=== PATIENT | male | born 1955 | race Caucasian/White ===

== ENCOUNTER 2018-11-09 14:31 | Emergency (ER) | payer MEDICARE, OTHER ==
[2018-11-09] MEDS ORDERED: METO25TA23 PO (14:41)
[2018-11-09] MEDS ORDERED: ASPI81TA94 PO (14:41)
[2018-11-09] MEDS ORDERED: LISI-362 PO (14:41)
[2018-11-09] MEDS ORDERED: OMEP-125 PO (14:41)
--- NOTE | 2018-11-09 14:43 | ER Report ---
History and Physical Time Seen By MD: 14:43 Hx. of Stated Complaint: FELL ON SHOULDER, SENT FROM [facility] HPI/PAULINE CHIEF COMPLAINT: Possible dislocation of left clavicle HISTORY OF PRESENT ILLNESS: 63-year-old male patient presents to emergency room with complaint of possible dislocation to the left clavicle. Patient states that he was getting out of his car today and noted that was normalized. When he walked around her with Cipro twice slipped and fell landing on his left shoulder. Patient has significant swelling to the sternoclavicular joint as well as his neck. Patient states he does have pain. He rates pain currently an 8.5-10 out of 10. Patient denies any nausea, vomiting or diarrhea. He did go to [facility] acute-care clinic and was evaluated there. They did do some x-rays and felt that the clavicle was dislocated. I did attempt to reduce above unsuccessful. They referred him to the emergency room for further evaluation. REVIEW OF SYSTEMS: Respiratory: No cough, no dyspnea. Cardiovascular: No chest pain, no palpitations. Gastrointestinal: No vomiting, no abdominal pain. Musculoskeletal: As noted above Allergies: Coded Allergies: No Known Drug Allergies (Unverified , 11/09/18) Home Meds Active Scripts Oxycodone Hcl/Acetaminophen (PERCOCET 5-325 MG TABLET) 1 Each Tablet, 1 EACH PO Q4-6H PRN for PAIN, #12 TAB Prov:WELLINGTON AMOR [employer] AND MAINTENANCE TECHNICIAN 11/09/18 Reported Medications Aspirin (ASPIRIN) 81 Mg Tab.chew, 81 MG PO QDAY, TAB.CHEW 11/09/18 Metoprolol Succinate (METOPROLOL SUCCINATE) 25 Mg Tab.er.24h, 1 TAB PO QDAY, TAB 11/09/18 Omeprazole (OMEPRAZOLE) 20 Mg Capsule.dr, 1 CAP PO BID, CAP 11/09/18 Lisinopril (LISINOPRIL) 10 Mg Tablet, 10 MG PO QDAY, TAB 11/09/18 Past Medical/Surgical History Patient has a past medical history of tachycardia, reflux, right collarbone fracture, tinnitus, skin cancer. Patient has surgical history of inguinal hernia repair. Reviewed Nurses Notes: Yes Constitutional Vital Sign - Last 24 Hours 11/09/18 11/09/18 11/09/18 11/09/18 14:36 14:36 15:00 15:01 Temp 97.4 Pulse 69 68 Resp 16 B/P (MAP) 135/87 (103) 135/87 141/83 (102) Pulse Ox 92 91 O2 Delivery Room Air 11/09/18 11/09/18 11/09/18 15:30 15:31 16:01 Pulse 73 74 B/P (MAP) 140/79 (99) Pulse Ox 90 88 Physical Exam General Appearance: The patient is alert, has no immediate need for airway protection and no current signs of toxicity. Respiratory: Chest is non tender, lungs are clear to auscultation. Cardiac: regular rate and rhythm Musculoskeletal: Neck: Neck is supple and non tender. Extremities have full range of motion and are non tender. Patient has tenderness to the anterior clavicle, has swelling around there. There is no bruising noted. Skin: No rashes or lesions. DIFFERENTIAL DIAGNOSIS: After history and physical exam differential diagnosis was considered for fracture, contusion, dislocation. Medical Decision Making EKG/Imaging Imaging CT left shoulder Indication: Shoulder pain. Injury. Dislocated clavicle. Comparison: None available. Technique: Axial CT images were obtained through the left shoulder. Reformatted coronal and sagittal images were reviewed. One of the following dose optimization techniques was utilized in the performanc e of this exam: Automated exposure control; adjustment of the mA and/or kV according to the patient's size; or use of an iterative reconstruction technique. Specific details can be referenced in the facility's radiology CT exam operational policy. Findings: With respect to the left clavicle, there is a mildly comminuted, intra-articular fracture seen involving the most medial clavicle at the sternoclavicular joint. In the short axis and in the sagittal planes, minimal displacement at the fracture site. Coronal images demonstrate normal alignment at the sternoclavicular joint. This appears symmetric to the right side. There is mild stranding in the overlying soft tissues consistent with edema and ecchymosis/blood products. Correlate clinically with physical exam. The remaining portions of the clavicle are unremarkable. No additional fracture. Distally, the acromioclavicular joint is appropriately aligned with moderate underlying degenerative change/osteoarthritis. At the shoulder, there is a type II acromion with a tiny subacromial spur. The glenohumeral joint is normally aligned. No fracture of the scapula or the proximal humerus. Intact and symmetric to the right side. No glenohumeral joint effusion. Musculature about the shoulder joint is intact. No axillary adenopathy. Visualized portions of the right lung are clear. No pneumothorax is seen. There is evidence of old granulomatous disease. IMPRESSION: 1. Minimally displaced, intra-articular fracture of the proximal/medial aspect of the left clavicle. There is fracture line extension into the sternoclavicular joint. Alignment at the sternoclavicular joint appears intact. 2. Soft tissue attenuation stranding within the overlying soft tissues at the site of the clavicle fracture. Correlate for edema/ecchymosis/hematoma. 3. Degenerative changes at the acromioclavicular joint. 4. Normal appearance of the left glenohumeral joint. Report Dictated By: Sg Jain at 11/09/2018 3:26 PM Report E-Signed By: Sg Jain at 11/09/2018 3:41 PM ED Course/Re-evaluation ED Course Patient was admitted to an exam room, history and physical were obtained. Differential diagnoses were considered. On examination lungs are clear, heart is regular, patient does have swelling to the left side of the chest and neck. Is tender to palpation. Patient was rating his pain an 8-1/2 out of 10. He did receive one dose of Percocet. I discussed case with Dr. Sandoval, orthopedist. He recommended getting a CT scan to verify dislocation of the clavicle. A CT scan was done. There is no obvious dislocation, however there was a nondisplaced fracture that could go into the intra-articular space. I discussed the findings with the patient. I spoke with Dr. Sandoval did have the opportunity to take a look at the images. He felt that there would be no surgical intervention needed. He felt that this would heal up well without any difficulties. I discussed this with the patient and his . We will go ahead and discharge him home. We'll give him a prescription for Percocet. I will have him follow-up with Dr. Sandoval in 1-2 weeks to make sure that the fracture is healing properly. Patient and his verbalized understanding and agreement with plan. Decision to Disposition Date: Nov 09, 2018 Decision to Disposition Time: 16:00 Depart Departure Latest Vital Signs Vital Signs Date Time Temp Pulse Resp B/P (MAP) Pulse Ox O2 Delivery O2 Flow Rate FiO2 11/09/18 16:01 74 88 11/09/18 15:30 140/79 (99) 11/09/18 14:36 97.4 16 Room Air Impression: Primary Impression: Traumatic closed fx of proximal clavicle with minimal displacement Condition: Improved Disposition: HOME OR SELF-CARE Referrals: KOFFI SANDOVAL MD New Scripts Oxycodone Hcl/Acetaminophen (PERCOCET 5-325 MG TABLET) 1 Each Tablet 1 EACH PO Q4-6H PRN for PAIN, #12 TAB Prov: WELLINGTON AMOR 11/09/18 Patient Instructions: Clavicle Fracture (ED) Additional Instructions: Limit activity by pain. Ice the shoulder 2-3 times a day for 20-30 minutes. Follow up with [facility], call tomorrow to make an appointment. Return to the ER if condition worsens. You may take Ibuprofen as needed for pain in addition to the pain medication. Don't take any additional Tylenol while on the pain medication. Problem Qualifiers Primary Impression: Traumatic closed fx of proximal clavicle with minimal displacement Encounter type: initial encounter Laterality: left Qualified Codes: S42.012A - Anterior displaced fracture of sternal end of left clavicle, initial encounter for closed fracture WELLINGTON AMOR Nov 09, 2018 14:43
[2018-11-09 15:30] VITALS: BP 140/79
--- NOTE | 2018-11-09 15:47 | RADIOLOGY IMAGING REPORT ---
FACILITY: PATIENT NAME: Shyam Peña : 1955 MR: [id number] V: [id number] EXAM DATE: ORDERING PHYSICIAN: WELLINGTON AMOR TECHNOLOGIST: Location: [facility] Patient: Shyam Peña : 1955 Visit/Account:[id number] Date of Sevice: 11/09/2018 CT left shoulder Indication: Shoulder pain. Injury. Dislocated clavicle. Comparison: None available. Technique: Axial CT images were obtained through the left shoulder. Reformatted coronal and sagittal images were reviewed. One of the following dose optimization techniques was utilized in the performance of this exam: Autom ated exposure control; adjustment of the mA and/or kV according to the patient's size; or use of an i terative reconstruction technique. Specific details can be referenced in the facility's radiology C T exam operational policy. Findings: With respect to the left clavicle, there is a mildly comminuted, intra-articular fracture seen involv ing the most medial clavicle at the sternoclavicular joint. In the short axis and in the sagittal kimberlyn kerri, minimal displacement at the fracture site. Coronal images demonstrate normal alignment at the st ernoclavicular joint. This appears symmetric to the right side. There is mild stranding in the overly ing soft tissues consistent with edema and ecchymosis/blood products. Correlate clinically with physi dashawn exam. The remaining portions of the clavicle are unremarkable. No additional fracture. Distally, the acromioclavicular joint is appropriately aligned with moderate underlying degenerative change/ost eoarthritis. At the shoulder, there is a type II acromion with a tiny subacromial spur. The glenohumeral joint is normally aligned. No fracture of the scapula or the proximal humerus. Intact and symmetric to the right side. No glenohumeral joint effusion. Musculature about the shoulder joint is intact. No axillary adenopathy. Visualized portions of the right lung are clear. No pneumothorax is seen. There is evidence of old gr anulomatous disease. IMPRESSION: 1. Minimally displaced, intra-articular fracture of the proximal/medial aspect of the left clavicle. There is fracture line extension into the sternoclavicular joint. Alignment at the sternoclavicular j oint appears intact. 2. Soft tissue attenuation stranding within the overlying soft tissues at the site of the clavicle fr acture. Correlate for edema/ecchymosis/hematoma. 3. Degenerative changes at the acromioclavicular joint. 4. Normal appearance of the left glenohumeral joint. Report Dictated By: Sg Jain at 11/09/2018 3:26 PM Report E-Signed By: Sg Jain at 11/09/2018 3:41 PM [id number]
[2018-11-09] MEDS ORDERED: OXYC-865 PO (15:59)
== END 2018-11-09 16:08 | disposition home or self-care (01) ==
LOC: ER 14:39
DX: S42.012A Anterior displaced fracture of sternal end of left clavicle, initial encounter for closed fracture (principal); W18.30XA Fall on same level, unspecified, initial encounter
CPT/HCPCS: 73200; 99284; A4565; A9270

== ENCOUNTER → 2018-12-26 | Outpatient (CLI) | payer MEDICARE, OTHER ==
[~2018-12-26] MED LIST: ASPI-1471 PO; ASPI81TA94 PO; LISI-362 PO; METO-235 PO; METO25TA23 PO; OMEP-125 PO; OXYC-865 PO; PNEU0.5D3 IM
[2018-12-26 08:52] LABS: PLATELET COUNT, AUTOMATED 151 K/uL (150-450)
[2018-12-26 09:28] LABS: LDL CHOLESTEROL 90 mg/dl
== END ==
LOC: LAB 08:07
PROVIDERS: ATTEND Nurse Practitioner Family
DX: Z12.5 Encounter for screening for malignant neoplasm of prostate (principal); Z11.59 Encounter for screening for other viral diseases; R00.0 Tachycardia, unspecified; I10 Essential (primary) hypertension
CPT/HCPCS: 36415; 84443; 85025; G0103; G0472; 82040; 82247; 82310; 82374; 82435; 82465; 82565; 82947; 83718; 84075; 84132; 84153; 84155; 84295; 84450; 84460; 84478; 84520; 86803

== ENCOUNTER 2019-03-06 00:15 | Day surgery (SDC) | payer MEDICARE, OTHER ==
[~2019-03-06] VITALS: Ht 175.3 cm; Wt 86.2 kg
[~2019-03-06 00:15] MED LIST changes: +LIDOCAINE/SOD BICARB 8.4% SYR ID ONE; +MULT1CAP59 PO; +NORMOSOL R SOLN(*) 1000 ML BAG 1,000 ML IV PRN; +PREVAGEN PO
[2019-03-06] MEDS ORDERED: PROPOFOL EMUL(*) 10MG/ML 20 ML 40 ML ONE (09:23)
[2019-03-06] MEDS ORDERED: LIDOCAINE MPF 1% 5 ML VIAL ONE (09:23)
[2019-03-06] MEDS ORDERED: NORMOSOL R SOLN(*) 1000 ML BAG 1,000 ML IV PRN (11:20)
[2019-03-06] MEDS ORDERED: LIDOCAINE/SOD BICARB 8.4% SYR ID ONE (11:20)
[2019-03-06 11:41] VITALS: BP 158/90
[2019-03-06 12:28] VITALS: BP 126/79
--- NOTE | 2019-03-06 12:39 | Short(Outpt) Discharge Summary ---
Discharge Summary Reason for Hosp/Final Diag: (1) Positive colorectal cancer screening using Cologuard test Status: Chronic Hospital Course & Plan: Colonoscopy with polypectomy x3 completed without problems. Departure Discharge to: Home, Self Care Discharge Instructions Home Meds Active Scripts Aspirin (ASPIR 81) 81 Mg Tablet., 1 TAB PO QDAY, #90 TAB 3 Refills Prov:CARLOS KNOX APRNP-C 12/25/18 Metoprolol Succinate (TOPROL XL) 100 Mg Tab.er.24h, 1 TAB PO QDAY, #90 TAB 3 Refills Prov:CARLOS KNOX APRN [employer]-C 12/25/18 Omeprazole (OMEPRAZOLE) 20 Mg Capsule.dr, 1 CAP PO DAILY, #90 CAP 3 Refills Prov:CARLOS KNOX APRNP-C 12/25/18 Lisinopril (LISINOPRIL) 10 Mg Tablet, 1 TAB PO DAILY, #90 TAB 3 Refills Prov:CARLOS KNOX APRNP-C 12/25/18 Reported Medications Multivitamin (MULTIVITAMINS) 1 Each Capsule, 2 CAP PO DAILY, CAPSULE 02/27/19 [Prevagen] No Conflict Check, 1 CAP PO DAILY 02/27/19 Diet: Regular Activity: As Tolerated Special Instructions: Your colonoscopy was completed without problems and your prep was excellent (Good Job!!). I removed 3 small polyps from your colon and they were sent to pathology. My office will call you in the next week or two to let you know what the polyps are and when your next colonoscopy should be (either 5 or 10 years) depending on the pathology results. You also have sigmoid diverticulosis which is a common condition where you develop little pockets in the wall of your colon, usually in the sigmoid colon. This is a benign condition and occurs in up to 40% of people. 10% of people with diverticulosis can get any infection called diverticulitis which is typically easily treated with antibiotics but 90% of people with diverticulosis have no problems with them at all. My only recommendation to people with diverticulosis is to eat a serving of fruit with breakfast, a fruit and vegetable with lunch, and 2 vegetables (or salad) with dinner and consider taking a daily fiber supplement such as metamucil or citrucel and ensure you're drinking at least 8 glasses of water every day to keep your stool hydrated. KIERSTEN LOPEZ MD March 06, 2019 12:39
[2019-03-06 12:45] VITALS: BP 107/67
[2019-03-06 12:53] VITALS: BP 125/82
[2019-03-06 12:57] VITALS: BP 125/87
== END 2019-03-06 13:15 | disposition home or self-care (01) ==
LOC: OR 00:15
PROVIDERS: ATTEND Surgery
DX: D12.3 Benign neoplasm of transverse colon (principal); D12.5 Benign neoplasm of sigmoid colon; K57.30 Diverticulosis of large intestine without perforation or abscess without bleeding
CPT/HCPCS: 00811; 45385; 88305; J2001; J2704